=== PATIENT | male | born 1980 | race American Indian/Alaskan Native ===

== ENCOUNTER 2016-10-23 12:09 | Emergency (ER) | payer BC ==
[2016-10-23 12:25] VITALS: BP 144/107
[2016-10-23] MEDS ORDERED: HYDROGEN PEROXIDE TP ONE (19:39)
[2016-10-23] MEDS ORDERED: COLACE OTIC ONE (19:42)
--- NOTE | 2016-10-23 20:02 | Emergency Department Report ---
HPI - General Chief Complaint: Earache Time Seen by Provider: 10/23/16 19:14 - HPI HPI: 36-year-old male presents today with right ear pain 4 days. Past history of ear infections. Denies drainage, dental pain, history of injury or trauma. Positive for minimal nasal congestion and cough. Also complaining of nausea and dizziness at this time. Denies chest pain, shortness of breath, abdominal pain. Tried Tylenol without relief. ED Past Medical Hx - Social History Smoking Status: Never Smoker Substance Use Type: None - Medications Home Medications: Home Medications Medication Instructions Recorded Confirmed Last Taken Type HYDROcodone/APAP 5-325 [[place] 1 each PO Q6HR PRN #8 tablet 09/04/14 Unknown Rx 5/325] Promethazine [Phenergan] 25 mg PO Q6H PRN #10 tablet 09/04/14 Unknown Rx Carbamide Peroxide [Ear Wax 3 - 5 drop OT BID #50 drops 10/23/16 Unknown Rx Removal] ED Review of Systems ROS: Stated complaint: RT EARACHE/NAUSEA/DIZZY/HEADACH Other details as noted in HPI Constitutional: denies: chills, fever, malaise Eyes: denies: eye pain ENT: ear pain, congestion. denies: throat pain, dental pain Respiratory: denies: cough, shortness of breath, wheezing Cardiovascular: denies: chest pain, palpitations Endocrine: no symptoms reported Gastrointestinal: denies: abdominal pain, nausea, vomiting Skin: denies: rash Neurological: denies: headache, weakness Physical Exam - Physical Exam Vital Signs: Vital Signs 10/23/16 12:23 Temperature 98.2 F Pulse Rate 69 Respiratory 18 Rate Blood Pressure 144/107 O2 Sat by Pulse 100 Oximetry Physical Exam: GENERAL: The patient is well-developed and well-nourished. Patient is in NAD. HEAD: Normocephalic. Atraumatic. EYES: PERRL. EARS: Cerumen impaction noted of right ear. Left external auditory canals and tympanic membranes clear. NOSE: Normal nasal mucosa with no nasal discharge. THROAT: No erythema, swelling or exudates. NECK: Supple, nontender, without lymphadenopathy. CHEST/LUNGS: Clear to auscultation throughout. HEART/CARDIOVASCULAR: Regular rate and rhythm. No murmurs, rubs or gallops. ABDOMEN: Abdomen is soft, nontender. Bowel sounds normoactive. No guarding or rebound tenderness. EXTREMITIES: Peripheral pulses intact. Capillary refill less than 2 seconds. NEURO: Alert and oriented x 3. Normal gait. ED Course Vital Signs 10/23/16 12:23 Temperature 98.2 F Pulse Rate 69 Respiratory 18 Rate Blood Pressure 144/107 O2 Sat by Pulse 100 Oximetry ED Medical Decision Making - Lab Data Vital Signs 10/23/16 12:23 Temperature 98.2 F Pulse Rate 69 Respiratory 18 Rate Blood Pressure 144/107 O2 Sat by Pulse 100 Oximetry - Medical Decision Making 36-year-old male presents today with right earache 4 days. Positive for right- sided cerumen impaction. Patient's area was irrigated with peroxide post- administration of Colace. Patient tolerated the procedure well. Reports some symptomatic relief. Post irrigation in her exam reveals partial cerumen impaction. Patient is in no acute distress at this time. He will be discharged home and is encouraged to follow up with a primary care provider. He will be sent home on deep proximal articular drops and is encouraged to return to the emergency room for any worsening symptoms. Critical care attestation.: If time is entered above; I have spent that time in minutes in the direct care of this critically ill patient, excluding procedure time. ED Disposition Clinical Impression: Impacted cerumen Qualifiers: Laterality: right Qualified Code(s): H61.21 - Impacted cerumen, right ear Disposition: DISCHARGED TO HOME OR SELFCARE Is pt being admited?: No Does the pt Need Aspirin: No Condition: Stable Instructions: Cerumen Impaction (ED) Additional Instructions: Follow-up with primary care provider. Return to emergency department if symptoms worsen. Prescriptions: Carbamide Peroxide [Ear Wax Removal] 3 - 5 drop OT BID #50 drops Referrals: PRIMARY CARE [Primary Care Provider] - 3-5 Days [facility] [Outside] - 3-5 Days [facility] [Provider Group] - 3-5 Days [facility] [Provider Group] - 3-5 Days Forms: Work/School Release Form(ED) Time of Disposition: 21:19
[2016-10-23] MEDS ORDERED: HYDROGEN PEROXIDE ONE (20:07)
== END 2016-10-23 21:29 | disposition home or self-care (01) ==
LOC: ED 12:09
DX: H61.21 Impacted cerumen, right ear (principal)
CPT/HCPCS: 99283

== ENCOUNTER 2021-10-17 06:25 | Emergency (ER) | payer BC ==
[2021-10-17] MEDS ORDERED: ACETAMINOPHEN 500 MG TAB PO ONE (07:11)
[2021-10-17] MEDS ORDERED: KETOROLAC 30 MG/1 ML INJ IV ONE (07:11)
[2021-10-17] MEDS ORDERED: SODIUM CHLORIDE 0.9% 1000 ML 1,000 ML IV ONE (07:11)
--- NOTE | 2021-10-17 07:14 | Emergency Department Report ---
ED Abdominal Pain HPI - General Chief Complaint: Abdominal Pain Stated Complaint: ABDOMINAL PAIN Time Seen by Provider: 10/17/21 07:01 Source: patient, old records reviewed Mode of arrival: Ambulatory Limitations: No Limitations - History of Present Illness Initial Comments: 41-year-old male with no significant past medical history presents to the [facility] complaining of abdominal pain, nausea, vomiting, decreased p.o. intake x1 week. Patient denies hematemesis. Patient reports fever of 101 at home. He also has cough occasionally the sputum. Complains of intermittent cramping epigastric pain rated 6/10 in intensity with no aggravating or alleviating factors. He denies alcohol abuse. He has received 2 doses of the Covid vaccine with last dose approximately 2 months ago. He has not received a booster shot. He does endorse loss of sense of taste. No previous abdominal surgeries reported. Patient noted to be hypertensive on today's vitals. Per medical record review patient has had elevated blood pressure readings in the past although he reports no history of hypertension - Related Data Previous Rx's Medication Instructions Recorded Last Taken Type HYDROcodone/APAP 5-325 [[place] 1 each PO Q6HR PRN #8 tablet 09/04/14 Unknown Rx 5/325] Promethazine [Phenergan] 25 mg PO Q6H PRN #10 tablet 09/04/14 Unknown Rx Carbamide Peroxide [Ear Wax 3 - 5 drop OT BID #50 drops 10/23/16 Unknown Rx Removal] Acetaminophen [8 Hour 650 mg PO Q8HR PRN #20 tablet.er 10/17/21 Unknown Rx Acetaminophen] Ondansetron [Zofran Odt] 4 mg PO Q8HR #20 tab.rapdis 10/17/21 Unknown Rx cephALEXin [Keflex] 500 mg PO Q12HR #14 cap 10/17/21 Unknown Rx Allergies Allergy/AdvReac Type Severity Reaction Status Date / Time No Known Allergies Allergy Verified 10/23/16 12:23 ED Review of Systems ROS: Stated complaint: ABDOMINAL PAIN Other details as noted in HPI Comment: All other systems reviewed and negative ED Past Medical Hx - Past Medical History Previous Medical History?: No - Surgical History Past Surgical History?: No - Social History Smoking Status: Never Smoker Substance Use Type: None - Medications Home Medications: Home Medications Medication Instructions Recorded Confirmed Last Taken Type HYDROcodone/APAP 5-325 [[place] 1 each PO Q6HR PRN #8 tablet 09/04/14 Unknown Rx 5/325] Promethazine [Phenergan] 25 mg PO Q6H PRN #10 tablet 09/04/14 Unknown Rx Carbamide Peroxide [Ear Wax 3 - 5 drop OT BID #50 drops 10/23/16 Unknown Rx Removal] Acetaminophen [8 Hour 650 mg PO Q8HR PRN #20 tablet.er 10/17/21 Unknown Rx Acetaminophen] Ondansetron [Zofran Odt] 4 mg PO Q8HR #20 tab.rapdis 10/17/21 Unknown Rx cephALEXin [Keflex] 500 mg PO Q12HR #14 cap 10/17/21 Unknown Rx ED Physical Exam - General Limitations: No Limitations - Other Other exam information: General: No acute distress Head: Atraumatic Eyes: normal appearance ENT: Moist mucous membranes Neck: Normal appearance, no midline tenderness Chest: Clear to auscultation bilaterally CV: Regular rhythm, mild tachycardia with sitting up in the bed Abdomen: Soft, normal bowel sounds, mild left lower quadrant abdominal pain, no rebound or guard Back: Normal inspection Extremity: Normal inspection, full range of motion Neuro: Alert O x 3, no facial asymmetry, speech clear, no gross motor sensory deficit Psych: Appropriate behavior Skin: No rash ED Course Vital Signs 10/17/21 10/17/21 06:30 10:30 Temperature 102.9 F H 98.7 F Pulse Rate 96 H 66 Respiratory 19 16 Rate Blood Pressure 162/100 Blood Pressure 145/88 [Left] O2 Sat by Pulse 100 96 Oximetry - Reevaluation(s) Reevaluation #1: 10/17/21 11:15 Patient reports feeling better. Pain and vomiting have improved. Repeat vital signs improved ED Medical Decision Making - Lab Data Result diagrams: 10/17/21 07:25 10/17/21 07:30 Lab Results 10/17/21 10/17/21 10/17/21 Range/Units 07:25 07:30 Unknown WBC 4.9 (4.5-11.0) K/mm3 RBC 4.96 (3.65-5.03) M/mm3 Hgb 13.7 (11.8-15.2) gm/dl Hct 42.2 (35.5-45.6) % MCV 85 (84-94) fl MCH 28 (28-32) pg MCHC 32 (32-34) % RDW 14.1 (13.2-15.2) % Plt Count 176 (140-440) K/mm3 Lymph % (Auto) 19.9 (13.4-35.0) % [place] % (Auto) 8.3 H (0.0-7.3) % Eos % (Auto) 0.0 (0.0-4.3) % Baso % (Auto) 0.2 (0.0-1.8) % Lymph # (Auto) 1.0 L (1.2-5.4) K/mm3 Tucker # (Auto) 0.4 (0.0-0.8) K/mm3 Eos # (Auto) 0.0 (0.0-0.4) K/mm3 Baso # (Auto) 0.0 (0.0-0.1) K/mm3 Seg Neutrophils % 71.6 H (40.0-70.0) % Seg Neutrophils # 3.5 (1.8-7.7) K/mm3 Sodium 138 (137-145) mmol/L Potassium 3.7 (3.6-5.0) mmol/L Chloride 99.4 (98-107) mmol/L Carbon Dioxide 23 (22-30) mmol/L Anion Gap 19 mmol/L BUN 29 H (9-20) mg/dL Creatinine 2.2 H (0.8-1.3) mg/dL Estimated GFR 40 ml/min BUN/Creatinine Ratio 13 % Glucose 103 H (75-100) mg/dL Calcium 9.0 (8.4-10.2) mg/dL Total Bilirubin 1.80 H (0.1-1.2) mg/dL AST 171 H (5-40) units/L ALT 78 H (7-56) units/L Alkaline Phosphatase 52 (35-129) units/L Total Protein 7.1 (6.3-8.2) g/dL Albumin 3.9 (3.9-5) g/dL Albumin/Globulin Ratio 1.2 % Lipase 26 (13-60) units/L Urine Color [place] (Yellow) Urine Turbidity Cloudy (Clear) Urine pH 5.0 (5.0-7.0) Ur Specific [place] 1.024 (1.003-1.030) Urine Protein 100 mg/dl (Negative) mg/dL Urine Glucose (UA) Neg (Negative) mg/dL Urine Ketones Neg (Negative) mg/dL Urine Blood Mod (Negative) Urine Nitrite Neg (Negative) Urine Bilirubin Neg (Negative) Urine Urobilinogen 4.0 (<2.0) mg/dL Ur Leukocyte Esterase Neg (Negative) Urine WBC (Auto) 14.0 H (0.0-6.0) /HPF Urine RBC (Auto) 6.0 (0.0-6.0) /HPF U Epithel Cells (Auto) 1.0 (0-13.0) /HPF Urine Mucus 3+ /HPF Urine Yeast (Budding) 2+ /HPF - Radiology Data Radiology results: report reviewed CHEST 2 VIEWS INDICATION / CLINICAL INFORMATION: cough, fever. COMPARISON: None available. FINDINGS: SUPPORT DEVICES: None. HEART / MEDIASTINUM: No significant abnormality. LUNGS / PLEURA: No significant pulmonary or pleural abnormality. No pneumothorax. ADDITIONAL FINDINGS: No significant additional findings. IMPRESSION: 1. No acute findings. - Medical Decision Making 41-year-old male presents to the hospital with abdominal pain, nausea, vomiting, cough, and dysuria. Suspect viral syndrome. Urine has elevated white cells without reported bacteria. He will be treated for UTI since he reports dysuria. There are no signs of hypoxia, pneumonia, or electrolyte abnormalities. Patient noted to have renal insufficiency new since 2013. Patient does not have signs of acidosis or hyperkalemia. Received 1 L normal saline nephrology as outpatient. Patient also noted to have mild LFT elevation. No signs of leukocytosis or severe sepsis. Vital signs improved with fever reduction. Patient treated with Tylenol, Toradol, Zofran, normal saline, Pepcid - Differential Diagnosis Viral syndrome, flu, Covid, intra-abdominal infection, UTI, pneumonia Critical Care Time: No Critical care attestation.: If time is entered above; I have spent that time in minutes in the direct care of this critically ill patient, excluding procedure time. ED Disposition Clinical Impression: Viral syndrome, UTI (urinary tract infection), Elevated blood pressure reading, Renal insufficiency, Elevated liver function tests Disposition: 01 HOME / SELF CARE / HOMELESS Is pt being admited?: No Condition: Stable Instructions: Urinary Tract Infection, Adult, [id number], How to Take Your Blood Pressure, [id number], Form - Blood Pressure Record Sheet, COVID-19: How to Protect Yourself and Others - CDC, Viral Illness, Adult, Liver Function Tests, Acute Kidney Injury, Adult Additional Instructions: Take the medication as prescribed including antibiotics for urinary tract infection. It is important you follow-up with a primary care doctor and a application processor guarding abnormal labs including kidney function and liver enzymes. As per medical record review your blood pressure has been elevated in the past you need to be evaluated to recheck your blood pressure to determine if treatment is necessary. It is likely you have a viral syndrome. I recommend that you received outpatient Covid testing to determine if you are infected. Continue to monitor and document your blood pressure prior to your follow-up visit. Take the copy of your lab results provided to your doctor visit. Prescriptions: Acetaminophen [8 Hour Acetaminophen] 650 mg PO Q8HR PRN #20 tablet.er PRN Reason: Fever >101 cephALEXin [Keflex] 500 mg PO Q12HR #14 cap Ondansetron [Zofran Odt] 4 mg PO Q8HR #20 tab.rapdis Referrals: PRIMARY CAREMD [Primary Care Provider] - 3-5 Days TAHIR LIRA MD [Staff Physician] - 3-5 Days JACOB GUY MD [Staff Physician] - 3-5 Days [facility] [Provider Group] - 3-5 Days Time of Disposition: 11:51
[2021-10-17] MEDS: FAMOTIDINE 20 MG/2 ML INJ IV ONE ×2 (07:53→07:58)
[2021-10-17] MEDS: ONDANSETRON 4 MG/2 ML INJ IV ONE ×2 (07:53→07:58)
[2021-10-17 08:13] LABS: Albumin 3.9 g/dL (3.9-5)
--- NOTE | 2021-10-17 08:17 | XRay Report ---
CHEST 2 VIEWS INDICATION / CLINICAL INFORMATION: cough, fever. COMPARISON: None available. FINDINGS: SUPPORT DEVICES: None. HEART / MEDIASTINUM: No significant abnormality. LUNGS / PLEURA: No significant pulmonary or pleural abnormality. No pneumothorax. ADDITIONAL FINDINGS: No significant additional findings. IMPRESSION: 1. No acute findings. Signer Name: Tyson Arredondo MD Signed: 10/17/2021 8:13 AM Workstation Name: [id number]
[2021-10-17 08:33] LABS: Basophils % (Auto) 0.2 % (0.0-1.8); Hematocrit 42.2 % (35.5-45.6); Hemoglobin 13.7 gm/dl (11.8-15.2); Lymphocytes % (Auto) 19.9 % (13.4-35.0); Mean Corpuscular HGB Conc 32 % (32-34); Mean Corpuscular Volume 85 fl (84-94); Monocytes # (Auto) 0.4 K/mm3 (0.0-0.8); Monocytes % (Auto) 8.3 % (0.0-7.3); Red Blood Count 4.96 M/mm3 (3.65-5.03); Red Cell Distribution Width 14.1 % (13.2-15.2)
[2021-10-17 08:35] LABS: Platelet Count 176 K/mm3 (140-440)
[2021-10-17 10:31] VITALS: BP 145/88
[2021-10-17 11:12] LABS: Bilirubin,Urine NEG (Negative); Blood,Urine MOD (Negative); Color,Urine Amber (Yellow); Mucus,Urine 3+ /HPF
== END 2021-10-17 12:29 | disposition home or self-care (01) ==
LOC: ED 06:25
DX: B34.9 Viral infection, unspecified (principal); R03.0 Elevated blood-pressure reading, without diagnosis of hypertension; N39.0 Urinary tract infection, site not specified; N28.9 Disorder of kidney and ureter, unspecified; Z79.899 Other long term (current) drug therapy
CPT/HCPCS: 36415; 71046; 80053; 81001; 83690; 85025; 87086; 96361; 96374; 96375; 99284; J1885; J2405; J3490; J7030; Q0162